=== PATIENT | female | born 1950 | race Caucasian/White ===

== ENCOUNTER 2024-12-05 08:15 | Outpatient (CLI) | payer MEDICARE, BC, SELFPAY ==
--- NOTE | 2024-12-05 08:20 | MM_ITS ---
WS: [id number] BILATERAL 3D TOMOSYNTHESIS DIGITAL SCREENING MAMMOGRAPHY WITH CAD CLINICAL INFORMATION: SCREENING HISTORY: Screening mammogram. No current complaints. COMPARISON: 2018 TECHNIQUE: Bilateral CC and MLO views. FINDINGS: Scattered fibroglandular densities bilaterally. No suspicious focal mass, asymmetry, calcifications, or architectural distortion. No evidence of malignancy. Previously described focal asymmetric density measuring 1.5 x 1.0 cm upper outer RIGHT breast appears relatively stable since 2018. Recommend ultr asound upper outer quadrant RIGHT breast as this lesion has not been previously evaluated MM/MM scr tomosynthesis [id number] IMPRESSION: DENSITY: There are scattered areas of fibroglandular density. BI-RADS: 0 - Incomplete: Need additional imaging evaluation. FOLLOW UP: Need Additional Imaging Recommend ultrasound upper outer quadrant RIGHT breast
== END 2024-12-05 08:16 | disposition home or self-care (01) ==
LOC: RAD 08:18
PROVIDERS: Family Provider Family Medicine; Visit Provider Electrodiagnostic Medicine
DX: Z12.31 Encounter for screening mammogram for malignant neoplasm of breast (principal); R92.323 Mammographic fibroglandular density, bilateral breasts; N63.11 Unspecified lump in the right breast, upper outer quadrant
CPT/HCPCS: 77063; 77067

== ENCOUNTER 2025-01-04 09:55 | Outpatient (CLI) | payer MEDICARE, SELFPAY ==
--- NOTE | 2025-01-04 09:57 | US_ITS ---
WS: [id number] ULTRASOUND BREAST RIGHT TECHNIQUE: Ultrasound right breast focused area of concern. CLINICAL INFORMATION: ABNORMAL MAMMOGRAM COMPARISON: Mammogram 12/05/2024 FINDINGS: Ultrasound RIGHT breast upper outer quadrant. At the 11 o'clock position 2 cm from the nipple there is a band of dense parenchymal tissue with a focal area of lobulation measuring 1.3 x 1.3 x 0.6 cm likely corresponds to the mammographic findings. No other suspicious lesions. The lesion seen on mammogram is stable since 2018 which is reassuring. Recommend return to annual screening mammography. US/US breast RT limited* [id number] IMPRESSION: BI-RADS 2 benign Recommend return to annual screening mammography
== END 2025-01-04 09:56 | disposition home or self-care (01) ==
PROVIDERS: Family Provider Family Medicine; PCP Electrodiagnostic Medicine; Visit Provider Electrodiagnostic Medicine
DX: R92.8 Other abnormal and inconclusive findings on diagnostic imaging of breast (principal); N64.89 Other specified disorders of breast
CPT/HCPCS: 76642